=== PATIENT | female | born 1965 | race African-American/Black ===

== ENCOUNTER 2020-09-23 18:42 | Inpatient (IN) ==
[2020-09-23] MEDS ORDERED: AZITHROMYCIN INJ 500 MG in SODIUM CHLORIDE 0.9% 250 ML IV STA (20:46)
[2020-09-23] MEDS ORDERED: DEXAMETHASONE 4 MG/1 ML VIAL IV STA (20:46)
[2020-09-23 20:51] LABS: Hemoglobin 12.2 GM/DL (12.0-16.0); Immature Granulocytes % 0.2 %; Immature Granulocytes Absolute 0.01 #; Lymphocytes # 0.9 10*3/uL (1.4-4.0); Lymphocytes % 18.3 % (21.3-54.2); Mean Corpuscular Volume 82.8 FL (87-102); Mean Platelet Volume 10.5 FL (9.6-12.0); Monocytes % 6.9 % (1.7-12.7); Neutrophils % 74.6 % (38.7-73.9); Platelet Count 175 T/CUMM (130-400); Red Blood Count 4.47 MC/CUMM (3.8-5.5); Red Cell Distribution Width 15.9 % (9.3-17.3); White Blood Count 4.8 T/CUMM (4-12)
[2020-09-23 21:15] LABS: Bilirubin,Total 1.1 MG/DL (0.20-1.00); Calcium 7.9 MG/DL (8.5-10.1); Osmolality,Calculated 277.7 MOS/KG (273-304); Potassium 3.1 MMOL/L (3.5-5.1); Total Protein 7.3 G/DL (6.4-8.2)
[2020-09-23] MEDS ORDERED: POTASSIUM CHLORIDE 20 MEQ TABLET PO STA (21:42)
[2020-09-23] MEDS ORDERED: MELATONIN 3 MG TABLET PO PRN (22:02)
[2020-09-23] MEDS ORDERED: GLUCAGON 1 MG VIAL IM PRN ×2 (22:02)
[2020-09-23] MEDS ORDERED: ONDANSETRON 4 MG/2 ML VIAL IV PRN (22:02)
[2020-09-23] MEDS ORDERED: DEXTROSE 50% 25 GM/50 ML VIAL IV PRN ×2 (22:02)
[2020-09-23 22:15] LABS: Bacteria,Urine Occasional /HPF (Few); Bilirubin,Urine Negative (Negative); Blood, Urine Negative (Negative); Glucose,Urine (UA) Negative (Negative); Hyaline Casts,Urine 26 /LPF (0-3); Ketones,Urine Negative (Negative); Mucus,Urine Occasional /LPF (Occasional); Nitrite,Urine Negative (Negative); Protein,Urine 100 MG/DL; RBC,Urine 6 /HPF (0-4); Squamous Epithelial Cell,Urine Occasional /HPF (0-10); Transitional Epi Cells,Urine Occasional /HPF (<1); Urine Appearance Slightly Hazy (Clear); Urine Color Amber (Yellow); Urine Specific Gravity 1.027 (1.001-1.035); Urine Urobilinogen < 2.0 EU/DL (0.2-1.0)
[2020-09-24 07:10] LABS: Hematocrit 37.1 VOL% (35.7-47.0); Hemoglobin 12.1 GM/DL (12.0-16.0); Immature Granulocytes % 0.3 %; Immature Granulocytes Absolute 0.01 #; Lymphocytes # 0.9 10*3/uL (1.4-4.0); Lymphocytes % 23.3 % (21.3-54.2); Mean Corpuscular HGB Conc 32.6 GM/DL (32-36); Mean Corpuscular Volume 83.6 FL (87-102); Mean Platelet Volume 11.6 FL (9.6-12.0); Monocytes % 5.8 % (1.7-12.7); Neutrophils % 70.6 % (38.7-73.9); Platelet Count 190 T/CUMM (130-400); Red Blood Count 4.44 MC/CUMM (3.8-5.5); Red Cell Distribution Width 15.9 % (9.3-17.3)
[2020-09-24 07:17] LABS: Alanine Aminotransferase 22 U/L (13-56); Albumin 2.9 G/DL (3.4-5.0); Alkaline Phosphatase 71 U/L (45-117); Aspartate Amino Transferase 33 U/L (0-37); Bilirubin,Total < 0.39 MG/DL (0.20-1.00); Blood Urea Nitrogen 18 MG/DL (7-18); Calcium 8.3 MG/DL (8.5-10.1); Carbon Dioxide 26 MMOL/L (21-32); Estimated Glom Filtration Rate 95 ML/MIN; Ferritin 357.3 ng/ml (8-252); Glucose 128 MG/DL (74-106); Osmolality,Calculated 278.7 MOS/KG (273-304); Sodium 138 MMOL/L (136-145); Total Protein 7.6 G/DL (6.4-8.2)
[2020-09-24] MEDS: INSULIN REGULAR 100 UNIT/ML SUBCUT SCH ×4 (07:43→20:58)
[2020-09-24 08:18] LABS: Band Neutrophils 2 % (0-10); Hypochromasia 1+; Lymphocytes 17 % (20-55); Platelet Estimate Adequate; Polychromasia Slight; Segmented Neutrophils 74 % (50-85); Total Cells Counted 100
[2020-09-24] MEDS: ASCORBIC ACID 500 MG TABLET PO SCH ×2 (09:15→20:59)
[2020-09-24] MEDS: CHOLECALCIFEROL 1,000 UNIT TABLET PO SCH (09:15)
[2020-09-24] MEDS: ZINC GLUCONATE 50 MG TABLET PO SCH (09:15)
[2020-09-24] MEDS: CETIRIZINE 10 MG TABLET PO SCH (09:15)
[2020-09-24] MEDS: FAMOTIDINE 20 MG TABLET PO SCH ×2 (09:16→20:59)
[2020-09-24] MEDS: DEXAMETHASONE 4 MG/1 ML VIAL IV SCH (09:20)
[2020-09-24] MEDS: PANTOPRAZOLE 40 MG TABLET PO SCH (09:20)
[2020-09-24] MEDS: ENOXAPARIN 40 MG/0.4 ML SYRINGE SUBCUT SCH ×2 (09:23→20:59)
[2020-09-24] MEDS ORDERED: REMDESIVIR 200 MG in SODIUM CHLORIDE 0.9% 210 ML IV ONE (14:00)
[2020-09-24] MEDS: guaiFENesin/CODEINE 5 ML LIQUID PO PRN (19:51)
[2020-09-24] MEDS ORDERED: AZITHROMYCIN INJ 500 MG in SODIUM CHLORIDE 0.9% 250 ML IV SCH (21:00)
[2020-09-24] MEDS ORDERED: diphenhydrAMINE CAP 25 MG CAPSULE ONE (21:25)
[2020-09-25] MEDS: guaiFENesin/CODEINE 5 ML LIQUID PO PRN ×4 (03:22→18:20)
[2020-09-25] MEDS: INSULIN REGULAR 100 UNIT/ML SUBCUT SCH ×4 (08:45→21:15)
[2020-09-25] MEDS: ZINC GLUCONATE 50 MG TABLET PO SCH (10:41)
[2020-09-25] MEDS: CETIRIZINE 10 MG TABLET PO SCH (10:41)
[2020-09-25] MEDS: FAMOTIDINE 20 MG TABLET PO SCH ×2 (10:41→21:15)
[2020-09-25] MEDS: REMDESIVIR 100 MG in SODIUM CHLORIDE 0.9% 100 ML IV SCH (10:41)
[2020-09-25] MEDS: PANTOPRAZOLE 40 MG TABLET PO SCH (10:42)
[2020-09-25] MEDS: ENOXAPARIN 40 MG/0.4 ML SYRINGE SUBCUT SCH ×2 (10:42→21:15)
[2020-09-25] MEDS: ASCORBIC ACID 500 MG TABLET PO SCH ×2 (10:42→21:15)
[2020-09-25] MEDS: CHOLECALCIFEROL 1,000 UNIT TABLET PO SCH (10:42)
[2020-09-25] MEDS: DEXAMETHASONE 4 MG/1 ML VIAL IV SCH (10:43)
[2020-09-25] MEDS ORDERED: AZITHROMYCIN 250 MG TABLET PO SCH (21:00)
[2020-09-26] MEDS: guaiFENesin/CODEINE 5 ML LIQUID PO PRN ×3 (00:30→21:10)
[2020-09-26 05:17] LABS: Hematocrit 38.8 VOL% (35.7-47.0); Hemoglobin 12.7 GM/DL (12.0-16.0); Immature Granulocytes % 0.4 %; Immature Granulocytes Absolute 0.02 #; Lymphocytes # 1.8 10*3/uL (1.4-4.0); Lymphocytes % 37.1 % (21.3-54.2); Mean Corpuscular HGB Conc 32.7 GM/DL (32-36); Mean Corpuscular Volume 83.4 FL (87-102); Mean Platelet Volume 10.3 FL (9.6-12.0); Monocytes % 13.3 % (1.7-12.7); Neutrophils % 49.2 % (38.7-73.9); Platelet Count 275 T/CUMM (130-400); Red Blood Count 4.65 MC/CUMM (3.8-5.5); White Blood Count 4.7 T/CUMM (4-12)
[2020-09-26 05:33] LABS: Calcium 8.5 MG/DL (8.5-10.1); Osmolality,Calculated 277.5 MOS/KG (273-304)
[2020-09-26 05:45] LABS: Hypochromasia 1+; Microcytosis 1+
[2020-09-26 05:46] LABS: Platelet Estimate Normal
[2020-09-26] MEDS: INSULIN REGULAR 100 UNIT/ML SUBCUT SCH ×4 (07:19→21:50)
[2020-09-26] MEDS: ENOXAPARIN 40 MG/0.4 ML SYRINGE SUBCUT SCH ×2 (09:25→21:10)
[2020-09-26] MEDS: DEXAMETHASONE 4 MG/1 ML VIAL IV SCH (09:25)
[2020-09-26] MEDS: CETIRIZINE 10 MG TABLET PO SCH (09:33)
[2020-09-26] MEDS: REMDESIVIR 100 MG in SODIUM CHLORIDE 0.9% 100 ML IV SCH (09:33)
[2020-09-26] MEDS: FAMOTIDINE 20 MG TABLET PO SCH ×2 (09:33→21:10)
[2020-09-26] MEDS: CHOLECALCIFEROL 1,000 UNIT TABLET PO SCH (09:33)
[2020-09-26] MEDS: ASCORBIC ACID 500 MG TABLET PO SCH ×2 (09:34→21:10)
[2020-09-26] MEDS: PANTOPRAZOLE 40 MG TABLET PO SCH (09:34)
[2020-09-26] MEDS: ZINC GLUCONATE 50 MG TABLET PO SCH (09:37)
[2020-09-27] MEDS: guaiFENesin/CODEINE 5 ML LIQUID PO PRN ×4 (02:54→23:07)
[2020-09-27 06:11] LABS: Hemoglobin 12.9 GM/DL (12.0-16.0); Immature Granulocytes % 1.1 %; Immature Granulocytes Absolute 0.06 #; Lymphocytes % 37.2 % (21.3-54.2); Mean Corpuscular HGB Conc 33.1 GM/DL (32-36); Mean Corpuscular Volume 82.8 FL (87-102); Mean Platelet Volume 10.4 FL (9.6-12.0); Monocytes % 12.1 % (1.7-12.7); Neutrophils % 49.6 % (38.7-73.9); Platelet Count 304 T/CUMM (130-400); Red Blood Count 4.71 MC/CUMM (3.8-5.5); Red Cell Distribution Width 15.9 % (9.3-17.3); White Blood Count 5.4 T/CUMM (4-12)
[2020-09-27 06:37] LABS: Calcium 8.3 MG/DL (8.5-10.1); Osmolality,Calculated 278.4 MOS/KG (273-304); Potassium 3.8 MMOL/L (3.5-5.1)
[2020-09-27] MEDS: INSULIN REGULAR 100 UNIT/ML SUBCUT SCH ×4 (07:12→21:40)
[2020-09-27 07:54] LABS: Hypochromasia 1+; Microcytosis 1+
[2020-09-27 07:55] LABS: Platelet Estimate Normal
[2020-09-27] MEDS: ASCORBIC ACID 500 MG TABLET PO SCH ×2 (08:15→21:40)
[2020-09-27] MEDS: PANTOPRAZOLE 40 MG TABLET PO SCH (08:15)
[2020-09-27] MEDS: CETIRIZINE 10 MG TABLET PO SCH (08:16)
[2020-09-27] MEDS: FAMOTIDINE 20 MG TABLET PO SCH ×2 (08:16→21:40)
[2020-09-27] MEDS: CHOLECALCIFEROL 1,000 UNIT TABLET PO SCH (08:16)
[2020-09-27] MEDS: ZINC GLUCONATE 50 MG TABLET PO SCH (08:16)
[2020-09-27] MEDS: DEXAMETHASONE 4 MG/1 ML VIAL IV SCH (08:16)
[2020-09-27] MEDS: ENOXAPARIN 40 MG/0.4 ML SYRINGE SUBCUT SCH ×2 (08:17→21:40)
[2020-09-27] MEDS: REMDESIVIR 100 MG in SODIUM CHLORIDE 0.9% 100 ML IV SCH (09:52)
[2020-09-28] MEDS: guaiFENesin/CODEINE 5 ML LIQUID PO PRN ×3 (04:48→21:25)
[2020-09-28 07:03] LABS: Basophils % 0.1 % (0.0-0.8); Hematocrit 37.8 VOL% (35.7-47.0); Hemoglobin 12.5 GM/DL (12.0-16.0); Immature Granulocytes Absolute 0.08 #; Lymphocytes # 2.5 10*3/uL (1.4-4.0); Lymphocytes % 31.2 % (21.3-54.2); Mean Corpuscular HGB Conc 33.1 GM/DL (32-36); Mean Corpuscular Volume 82.2 FL (87-102); Mean Platelet Volume 10.3 FL (9.6-12.0); Monocytes % 8.8 % (1.7-12.7); NRBC # 0.02 10*3/uL; Neutrophils % 58.9 % (38.7-73.9); Platelet Count 366 T/CUMM (130-400)
[2020-09-28 07:21] LABS: Calcium 8.4 MG/DL (8.5-10.1); Osmolality,Calculated 272.8 MOS/KG (273-304); Potassium 3.5 MMOL/L (3.5-5.1)
[2020-09-28 07:38] LABS: Band Neutrophils 2 % (0-10); Lymphocytes 35 % (20-55); Platelet Estimate Normal; Segmented Neutrophils 53 % (50-85); Total Cells Counted 100
[2020-09-28 07:39] LABS: Anisocytosis 1+; Atypical Lymphocytes Few
[2020-09-28] MEDS: INSULIN REGULAR 100 UNIT/ML SUBCUT SCH ×4 (08:37→20:14)
[2020-09-28] MEDS: PANTOPRAZOLE 40 MG TABLET PO SCH (09:43)
[2020-09-28] MEDS: ZINC GLUCONATE 50 MG TABLET PO SCH (09:43)
[2020-09-28] MEDS: CHOLECALCIFEROL 1,000 UNIT TABLET PO SCH (09:43)
[2020-09-28] MEDS: CETIRIZINE 10 MG TABLET PO SCH (09:43)
[2020-09-28] MEDS: ASCORBIC ACID 500 MG TABLET PO SCH ×2 (09:43→21:22)
[2020-09-28] MEDS: FAMOTIDINE 20 MG TABLET PO SCH ×2 (09:43→21:22)
[2020-09-28] MEDS: DEXAMETHASONE 4 MG/1 ML VIAL IV SCH (09:44)
[2020-09-28] MEDS: ENOXAPARIN 40 MG/0.4 ML SYRINGE SUBCUT SCH ×2 (09:44→21:22)
[2020-09-28] MEDS: REMDESIVIR 100 MG in SODIUM CHLORIDE 0.9% 100 ML IV SCH (09:44)
[2020-09-28] MEDS ORDERED: tiZANidine 4 MG TABLET PO PRN (15:20)
[2020-09-28] MEDS: FUROSEMIDE 40 MG TABLET PO SCH (16:28)
[2020-09-28] MEDS: ASPIRIN EC 81 MG TABLET PO SCH (16:28)
[2020-09-28] MEDS: ATORVASTATIN 20 MG TABLET PO SCH (16:28)
[2020-09-28] MEDS: busPIRone 5 MG TABLET PO SCH (21:22)
[2020-09-28] MEDS: allopurinoL 100 MG TABLET PO SCH (21:22)
[2020-09-28] MEDS: POTASSIUM CHLORIDE 20 MEQ TABLET PO SCH (21:22)
[2020-09-28] MEDS: DOXAZOSIN 1 MG TABLET PO SCH (21:22)
[2020-09-29] MEDS: guaiFENesin/CODEINE 5 ML LIQUID PO PRN ×3 (05:09→16:18)
[2020-09-29] MEDS: INSULIN REGULAR 100 UNIT/ML SUBCUT SCH ×4 (08:34→21:01)
[2020-09-29] MEDS: ASPIRIN EC 81 MG TABLET PO SCH (09:35)
[2020-09-29] MEDS: ENOXAPARIN 40 MG/0.4 ML SYRINGE SUBCUT SCH ×2 (09:35→20:44)
[2020-09-29] MEDS: ZINC GLUCONATE 50 MG TABLET PO SCH (09:35)
[2020-09-29] MEDS: CHOLECALCIFEROL 1,000 UNIT TABLET PO SCH (09:35)
[2020-09-29] MEDS: CETIRIZINE 10 MG TABLET PO SCH (09:36)
[2020-09-29] MEDS: POTASSIUM CHLORIDE 20 MEQ TABLET PO SCH ×2 (09:36→20:44)
[2020-09-29] MEDS: FAMOTIDINE 20 MG TABLET PO SCH ×2 (09:36→20:44)
[2020-09-29] MEDS: ASCORBIC ACID 500 MG TABLET PO SCH ×2 (09:36→20:44)
[2020-09-29] MEDS: ATORVASTATIN 20 MG TABLET PO SCH (09:36)
[2020-09-29] MEDS: allopurinoL 100 MG TABLET PO SCH ×2 (09:37→20:44)
[2020-09-29] MEDS: FUROSEMIDE 40 MG TABLET PO SCH (09:37)
[2020-09-29] MEDS: busPIRone 5 MG TABLET PO SCH ×2 (09:37→20:44)
[2020-09-29] MEDS: PANTOPRAZOLE 40 MG TABLET PO SCH (09:37)
[2020-09-29] MEDS: DEXAMETHASONE 4 MG/1 ML VIAL IV SCH (09:38)
[2020-09-29] MEDS: DOXAZOSIN 1 MG TABLET PO SCH ×2 (09:48→20:44)
[2020-09-29 16:33] LABS: Calcium 8.4 MG/DL (8.5-10.1); Osmolality,Calculated 274.8 MOS/KG (273-304); Potassium 4.4 MMOL/L (3.5-5.1)
[2020-09-30] MEDS: guaiFENesin/CODEINE 5 ML LIQUID PO PRN ×4 (01:30→21:35)
[2020-09-30 03:16] LABS: Eosinophils # 0.1 10*3/uL (0.0-0.87); Eosinophils % 1.2 % (0.00-10.9); Hemoglobin 12.5 GM/DL (12.0-16.0); Immature Granulocytes % 0.9 %; Immature Granulocytes Absolute 0.05 #; Lymphocytes # 1.1 10*3/uL (1.4-4.0); Lymphocytes % 18.5 % (21.3-54.2); Mean Corpuscular HGB Conc 33.8 GM/DL (32-36); Mean Corpuscular Volume 83.1 FL (87-102); Mean Platelet Volume 9.9 FL (9.6-12.0); Monocytes % 9.6 % (1.7-12.7); Neutrophils % 69.8 % (38.7-73.9); Platelet Count 407 T/CUMM (130-400); Red Blood Count 4.45 MC/CUMM (3.8-5.5); Red Cell Distribution Width 16.3 % (9.3-17.3); White Blood Count 5.8 T/CUMM (4-12)
[2020-09-30] MEDS: INSULIN REGULAR 100 UNIT/ML SUBCUT SCH ×4 (08:12→21:01)
[2020-09-30] MEDS: DOXAZOSIN 1 MG TABLET PO SCH ×2 (08:34→21:01)
[2020-09-30] MEDS: CHOLECALCIFEROL 1,000 UNIT TABLET PO SCH (08:34)
[2020-09-30] MEDS: PANTOPRAZOLE 40 MG TABLET PO SCH (08:35)
[2020-09-30] MEDS: ZINC GLUCONATE 50 MG TABLET PO SCH (08:35)
[2020-09-30] MEDS: ASCORBIC ACID 500 MG TABLET PO SCH ×2 (08:35→21:00)
[2020-09-30] MEDS: ASPIRIN EC 81 MG TABLET PO SCH (08:35)
[2020-09-30] MEDS: CETIRIZINE 10 MG TABLET PO SCH (08:35)
[2020-09-30] MEDS: POTASSIUM CHLORIDE 20 MEQ TABLET PO SCH ×2 (08:35→21:00)
[2020-09-30] MEDS: ATORVASTATIN 20 MG TABLET PO SCH (08:35)
[2020-09-30] MEDS: allopurinoL 100 MG TABLET PO SCH ×2 (08:35→21:00)
[2020-09-30] MEDS: FAMOTIDINE 20 MG TABLET PO SCH ×2 (08:35→21:01)
[2020-09-30] MEDS: busPIRone 5 MG TABLET PO SCH ×2 (08:35→21:00)
[2020-09-30] MEDS: FUROSEMIDE 40 MG TABLET PO SCH (08:36)
[2020-09-30] MEDS: ENOXAPARIN 40 MG/0.4 ML SYRINGE SUBCUT SCH ×2 (08:36→21:00)
[2020-09-30] MEDS: DEXAMETHASONE 4 MG/1 ML VIAL IV SCH (09:07)
[2020-09-30] MEDS: ACETAMINOPHEN 325 MG TABLET PO PRN (16:10)
[2020-09-30] MEDS: REMDESIVIR 100 MG in SODIUM CHLORIDE 0.9% 100 ML IV SCH (17:17)
[2020-09-30] MEDS: MEROPENEM 500 MG in SODIUM CHLORIDE 0.9% 100 ML IV SCH (18:36)
[2020-10-01] MEDS: MEROPENEM 500 MG in SODIUM CHLORIDE 0.9% 100 ML IV SCH ×4 (00:18→18:04)
[2020-10-01] MEDS: ACETAMINOPHEN 325 MG TABLET PO PRN (00:25)
[2020-10-01 06:57] LABS: Basophils % 0.1 % (0.0-0.8); Eosinophils # 0.2 10*3/uL (0.0-0.87); Eosinophils % 2.6 % (0.00-10.9); Hematocrit 38.5 VOL% (35.7-47.0); Immature Granulocytes % 0.9 %; Immature Granulocytes Absolute 0.07 #; Lymphocytes # 1.3 10*3/uL (1.4-4.0); Lymphocytes % 17.5 % (21.3-54.2); Mean Corpuscular HGB Conc 33.8 GM/DL (32-36); Mean Platelet Volume 9.1 FL (9.6-12.0); Monocytes % 5.8 % (1.7-12.7); Neutrophils % 73.1 % (38.7-73.9); Platelet Count 385 T/CUMM (130-400); Red Blood Count 4.64 MC/CUMM (3.8-5.5); Red Cell Distribution Width 16.4 % (9.3-17.3); White Blood Count 7.6 T/CUMM (4-12)
[2020-10-01 07:16] LABS: Albumin 2.4 G/DL (3.4-5.0); Bilirubin,Direct 0.19 MG/DL (0.0-0.20); Bilirubin,Indirect 0.5 MG/DL (0.0-1.0); Bilirubin,Total 0.7 MG/DL (0.20-1.00); Total Protein 6.8 G/DL (6.4-8.2)
[2020-10-01 07:20] LABS: Calcium 8.2 MG/DL (8.5-10.1); Osmolality,Calculated 268.1 MOS/KG (273-304); Potassium 4.4 MMOL/L (3.5-5.1)
[2020-10-01] MEDS: INSULIN REGULAR 100 UNIT/ML SUBCUT SCH ×4 (07:32→21:06)
[2020-10-01] MEDS: DEXAMETHASONE 4 MG/1 ML VIAL IV SCH (08:41)
[2020-10-01] MEDS: FUROSEMIDE 40 MG TABLET PO SCH (08:41)
[2020-10-01] MEDS: allopurinoL 100 MG TABLET PO SCH ×2 (08:41→21:07)
[2020-10-01] MEDS: DOXAZOSIN 1 MG TABLET PO SCH ×2 (08:41→21:05)
[2020-10-01] MEDS: busPIRone 5 MG TABLET PO SCH ×2 (08:42→21:05)
[2020-10-01] MEDS: PANTOPRAZOLE 40 MG TABLET PO SCH (08:42)
[2020-10-01] MEDS: ASCORBIC ACID 500 MG TABLET PO SCH ×2 (08:42→21:07)
[2020-10-01] MEDS: POTASSIUM CHLORIDE 20 MEQ TABLET PO SCH ×2 (08:42→21:06)
[2020-10-01] MEDS: CHOLECALCIFEROL 1,000 UNIT TABLET PO SCH (08:42)
[2020-10-01] MEDS: ASPIRIN EC 81 MG TABLET PO SCH (08:42)
[2020-10-01] MEDS: FAMOTIDINE 20 MG TABLET PO SCH ×2 (08:42→21:07)
[2020-10-01] MEDS: ZINC GLUCONATE 50 MG TABLET PO SCH (08:42)
[2020-10-01] MEDS: ATORVASTATIN 20 MG TABLET PO SCH (08:42)
[2020-10-01] MEDS: CETIRIZINE 10 MG TABLET PO SCH (08:45)
[2020-10-01] MEDS: ENOXAPARIN 40 MG/0.4 ML SYRINGE SUBCUT SCH ×2 (08:45→21:06)
[2020-10-01] MEDS: guaiFENesin/CODEINE 5 ML LIQUID PO PRN ×3 (09:14→21:08)
[2020-10-01] MEDS ORDERED: FUROSEMIDE 40 MG/4 ML VIAL IV ONE (10:28)
[2020-10-01] MEDS: REMDESIVIR 100 MG in SODIUM CHLORIDE 0.9% 100 ML IV SCH (13:32)
[2020-10-01] MEDS: FUROSEMIDE 40 MG/4 ML VIAL IV SCH (21:06)
[2020-10-02] MEDS: MEROPENEM 500 MG in SODIUM CHLORIDE 0.9% 100 ML IV SCH ×4 (01:44→17:33)
[2020-10-02] MEDS: guaiFENesin/CODEINE 5 ML LIQUID PO PRN ×4 (03:00→23:06)
[2020-10-02 06:32] LABS: Basophils % 0.2 % (0.0-0.8); Eosinophils # 0.1 10*3/uL (0.0-0.87); Eosinophils % 0.9 % (0.00-10.9); Hematocrit 36.7 VOL% (35.7-47.0); Hemoglobin 12.5 GM/DL (12.0-16.0); Immature Granulocytes % 0.8 %; Immature Granulocytes Absolute 0.05 #; Lymphocytes # 1.1 10*3/uL (1.4-4.0); Lymphocytes % 17.6 % (21.3-54.2); Mean Corpuscular HGB Conc 34.1 GM/DL (32-36); Mean Corpuscular Volume 81.7 FL (87-102); Mean Platelet Volume 9.2 FL (9.6-12.0); Monocytes % 7.2 % (1.7-12.7); Neutrophils % 73.3 % (38.7-73.9); Platelet Count 428 T/CUMM (130-400); Red Blood Count 4.49 MC/CUMM (3.8-5.5); Red Cell Distribution Width 16.2 % (9.3-17.3); White Blood Count 6.4 T/CUMM (4-12)
[2020-10-02 07:01] LABS: Band Neutrophils 1 % (0-10); Eosinophils 1 % (0-10); Hypochromasia 1+; Lymphocytes 22 % (20-55); Microcytosis 1+; Platelet Estimate Adequate; Segmented Neutrophils 70 % (50-85); Total Cells Counted 100
[2020-10-02 07:06] LABS: Calcium 8.8 MG/DL (8.5-10.1); Ferritin 308.5 ng/ml (8-252); Osmolality,Calculated 276.8 MOS/KG (273-304); Potassium 4.1 MMOL/L (3.5-5.1)
[2020-10-02] MEDS: INSULIN REGULAR 100 UNIT/ML SUBCUT SCH ×4 (07:50→21:07)
[2020-10-02] MEDS: ASCORBIC ACID 500 MG TABLET PO SCH ×2 (08:52→21:06)
[2020-10-02] MEDS: ENOXAPARIN 40 MG/0.4 ML SYRINGE SUBCUT SCH ×2 (08:52→21:05)
[2020-10-02] MEDS: POTASSIUM CHLORIDE 20 MEQ TABLET PO SCH ×2 (08:52→21:06)
[2020-10-02] MEDS: ATORVASTATIN 20 MG TABLET PO SCH (08:53)
[2020-10-02] MEDS: DOXAZOSIN 1 MG TABLET PO SCH ×2 (08:53→21:06)
[2020-10-02] MEDS: FAMOTIDINE 20 MG TABLET PO SCH ×2 (08:53→21:06)
[2020-10-02] MEDS: ASPIRIN EC 81 MG TABLET PO SCH (08:53)
[2020-10-02] MEDS: busPIRone 5 MG TABLET PO SCH ×2 (08:53→21:06)
[2020-10-02] MEDS: CETIRIZINE 10 MG TABLET PO SCH (08:53)
[2020-10-02] MEDS: allopurinoL 100 MG TABLET PO SCH ×2 (08:53→21:06)
[2020-10-02] MEDS: CHOLECALCIFEROL 1,000 UNIT TABLET PO SCH (08:53)
[2020-10-02] MEDS: FUROSEMIDE 40 MG/4 ML VIAL IV SCH ×2 (08:53→21:05)
[2020-10-02] MEDS: ZINC GLUCONATE 50 MG TABLET PO SCH (08:53)
[2020-10-02] MEDS: DEXAMETHASONE 4 MG/1 ML VIAL IV SCH (08:54)
[2020-10-02] MEDS: PANTOPRAZOLE 40 MG TABLET PO SCH (08:58)
[2020-10-02] MEDS: REMDESIVIR 100 MG in SODIUM CHLORIDE 0.9% 100 ML IV SCH (10:05)
[2020-10-03] MEDS: MEROPENEM 500 MG in SODIUM CHLORIDE 0.9% 100 ML IV SCH ×4 (05:30→19:44)
[2020-10-03] MEDS: guaiFENesin/CODEINE 5 ML LIQUID PO PRN ×3 (05:30→21:53)
[2020-10-03 06:26] LABS: Basophils % 0.2 % (0.0-0.8); Eosinophils # 0.1 10*3/uL (0.0-0.87); Hematocrit 37.3 VOL% (35.7-47.0); Hemoglobin 12.2 GM/DL (12.0-16.0); Immature Granulocytes % 0.7 %; Immature Granulocytes Absolute 0.06 #; Lymphocytes # 2.1 10*3/uL (1.4-4.0); Lymphocytes % 23.2 % (21.3-54.2); Mean Corpuscular HGB Conc 32.7 GM/DL (32-36); Mean Platelet Volume 9.7 FL (9.6-12.0); Monocytes % 6.8 % (1.7-12.7); Neutrophils % 68.1 % (38.7-73.9); Platelet Count 473 T/CUMM (130-400); Red Blood Count 4.55 MC/CUMM (3.8-5.5); Red Cell Distribution Width 15.9 % (9.3-17.3); White Blood Count 8.9 T/CUMM (4-12)
[2020-10-03 06:57] LABS: Calcium 8.8 MG/DL (8.5-10.1); Ferritin 288.7 ng/ml (8-252); Osmolality,Calculated 265.5 MOS/KG (273-304); Potassium 3.8 MMOL/L (3.5-5.1)
[2020-10-03] MEDS: INSULIN REGULAR 100 UNIT/ML SUBCUT SCH ×4 (08:01→23:33)
[2020-10-03] MEDS: FUROSEMIDE 40 MG/4 ML VIAL IV SCH ×2 (08:13→21:53)
[2020-10-03] MEDS: DEXAMETHASONE 4 MG/1 ML VIAL IV SCH (08:14)
[2020-10-03] MEDS: CHOLECALCIFEROL 1,000 UNIT TABLET PO SCH (09:42)
[2020-10-03] MEDS: CETIRIZINE 10 MG TABLET PO SCH (09:42)
[2020-10-03] MEDS: FAMOTIDINE 20 MG TABLET PO SCH ×2 (09:42→21:54)
[2020-10-03] MEDS: DOXAZOSIN 1 MG TABLET PO SCH ×2 (09:42→21:53)
[2020-10-03] MEDS: ZINC GLUCONATE 50 MG TABLET PO SCH (09:42)
[2020-10-03] MEDS: ATORVASTATIN 20 MG TABLET PO SCH (09:42)
[2020-10-03] MEDS: ASCORBIC ACID 500 MG TABLET PO SCH ×2 (09:42→21:54)
[2020-10-03] MEDS: ASPIRIN EC 81 MG TABLET PO SCH (09:42)
[2020-10-03] MEDS: POTASSIUM CHLORIDE 20 MEQ TABLET PO SCH ×2 (09:43→21:54)
[2020-10-03] MEDS: ENOXAPARIN 40 MG/0.4 ML SYRINGE SUBCUT SCH ×2 (09:43→21:53)
[2020-10-03] MEDS: busPIRone 5 MG TABLET PO SCH ×2 (09:43→21:53)
[2020-10-03] MEDS: allopurinoL 100 MG TABLET PO SCH ×2 (09:43→21:54)
[2020-10-03] MEDS: PANTOPRAZOLE 40 MG TABLET PO SCH ×2 (09:43→15:06)
[2020-10-03] MEDS: REMDESIVIR 100 MG in SODIUM CHLORIDE 0.9% 100 ML IV SCH (10:02)
[2020-10-04] MEDS: MEROPENEM 500 MG in SODIUM CHLORIDE 0.9% 100 ML IV SCH ×4 (00:50→18:39)
[2020-10-04] MEDS: guaiFENesin/CODEINE 5 ML LIQUID PO PRN ×3 (03:48→14:40)
[2020-10-04 05:12] LABS: Basophils % 0.2 % (0.0-0.8); Eosinophils # 0.1 10*3/uL (0.0-0.87); Eosinophils % 0.5 % (0.00-10.9); Hematocrit 36.7 VOL% (35.7-47.0); Hemoglobin 12.3 GM/DL (12.0-16.0); Immature Granulocytes % 0.7 %; Immature Granulocytes Absolute 0.07 #; Lymphocytes # 2.6 10*3/uL (1.4-4.0); Lymphocytes % 24.9 % (21.3-54.2); Mean Corpuscular HGB Conc 33.5 GM/DL (32-36); Mean Corpuscular Volume 82.5 FL (87-102); Mean Platelet Volume 9.8 FL (9.6-12.0); Monocytes % 9.1 % (1.7-12.7); Neutrophils % 64.6 % (38.7-73.9); Platelet Count 475 T/CUMM (130-400); Red Blood Count 4.45 MC/CUMM (3.8-5.5); Red Cell Distribution Width 16.1 % (9.3-17.3); White Blood Count 10.3 T/CUMM (4-12)
[2020-10-04 05:40] LABS: Calcium 8.5 MG/DL (8.5-10.1); Ferritin 241.3 ng/ml (8-252); Osmolality,Calculated 276.7 MOS/KG (273-304)
[2020-10-04] MEDS: ENOXAPARIN 40 MG/0.4 ML SYRINGE SUBCUT SCH ×2 (08:52→20:58)
[2020-10-04] MEDS: FUROSEMIDE 40 MG/4 ML VIAL IV SCH ×2 (08:53→20:58)
[2020-10-04] MEDS: CETIRIZINE 10 MG TABLET PO SCH (08:54)
[2020-10-04] MEDS: allopurinoL 100 MG TABLET PO SCH ×2 (08:54→20:57)
[2020-10-04] MEDS: FAMOTIDINE 20 MG TABLET PO SCH ×2 (08:54→20:58)
[2020-10-04] MEDS: ASPIRIN EC 81 MG TABLET PO SCH (08:54)
[2020-10-04] MEDS: POTASSIUM CHLORIDE 20 MEQ TABLET PO SCH ×2 (08:54→20:58)
[2020-10-04] MEDS: ATORVASTATIN 20 MG TABLET PO SCH (08:54)
[2020-10-04] MEDS: ZINC GLUCONATE 50 MG TABLET PO SCH (08:54)
[2020-10-04] MEDS: busPIRone 5 MG TABLET PO SCH ×2 (08:54→20:58)
[2020-10-04] MEDS: CHOLECALCIFEROL 1,000 UNIT TABLET PO SCH (08:54)
[2020-10-04] MEDS: DOXAZOSIN 1 MG TABLET PO SCH ×2 (08:54→20:57)
[2020-10-04] MEDS: PANTOPRAZOLE 40 MG TABLET PO SCH (08:54)
[2020-10-04] MEDS: ASCORBIC ACID 500 MG TABLET PO SCH ×2 (08:55→20:58)
[2020-10-04] MEDS: INSULIN REGULAR 100 UNIT/ML SUBCUT SCH ×4 (09:43→21:19)
[2020-10-04] MEDS: REMDESIVIR 100 MG in SODIUM CHLORIDE 0.9% 100 ML IV SCH (10:58)
[2020-10-05] MEDS: guaiFENesin/CODEINE 5 ML LIQUID PO PRN ×4 (00:03→22:45)
[2020-10-05] MEDS: MEROPENEM 500 MG in SODIUM CHLORIDE 0.9% 100 ML IV SCH ×4 (02:18→21:17)
[2020-10-05 05:37] LABS: Basophils % 0.2 % (0.0-0.8); Eosinophils # 0.1 10*3/uL (0.0-0.87); Hematocrit 36.3 VOL% (35.7-47.0); Hemoglobin 11.9 GM/DL (12.0-16.0); Immature Granulocytes % 0.7 %; Immature Granulocytes Absolute 0.09 #; Lymphocytes # 2.9 10*3/uL (1.4-4.0); Lymphocytes % 21.9 % (21.3-54.2); Mean Corpuscular HGB Conc 32.8 GM/DL (32-36); Mean Corpuscular Volume 82.9 FL (87-102); Mean Platelet Volume 9.6 FL (9.6-12.0); Monocytes % 10.2 % (1.7-12.7); Platelet Count 406 T/CUMM (130-400); Red Blood Count 4.38 MC/CUMM (3.8-5.5); Red Cell Distribution Width 16.2 % (9.3-17.3); White Blood Count 13.2 T/CUMM (4-12)
[2020-10-05 05:56] LABS: Calcium 8.4 MG/DL (8.5-10.1); Ferritin 323.2 ng/ml (8-252); Potassium 4.1 MMOL/L (3.5-5.1)
[2020-10-05] MEDS: INSULIN REGULAR 100 UNIT/ML SUBCUT SCH ×4 (09:18→21:53)
[2020-10-05] MEDS: FUROSEMIDE 40 MG/4 ML VIAL IV SCH (09:22)
[2020-10-05] MEDS: POTASSIUM CHLORIDE 20 MEQ TABLET PO SCH ×2 (09:25→20:59)
[2020-10-05] MEDS: allopurinoL 100 MG TABLET PO SCH ×2 (09:25→20:59)
[2020-10-05] MEDS: CHOLECALCIFEROL 1,000 UNIT TABLET PO SCH (09:25)
[2020-10-05] MEDS: ASPIRIN EC 81 MG TABLET PO SCH (09:25)
[2020-10-05] MEDS: ATORVASTATIN 20 MG TABLET PO SCH (09:25)
[2020-10-05] MEDS: ASCORBIC ACID 500 MG TABLET PO SCH ×2 (09:25→21:00)
[2020-10-05] MEDS: PANTOPRAZOLE 40 MG TABLET PO SCH (09:25)
[2020-10-05] MEDS: DOXAZOSIN 1 MG TABLET PO SCH ×2 (09:26→20:59)
[2020-10-05] MEDS: CETIRIZINE 10 MG TABLET PO SCH (09:26)
[2020-10-05] MEDS: ZINC GLUCONATE 50 MG TABLET PO SCH (09:26)
[2020-10-05] MEDS: busPIRone 5 MG TABLET PO SCH ×2 (09:26→20:59)
[2020-10-05] MEDS: FAMOTIDINE 20 MG TABLET PO SCH ×2 (09:26→20:59)
[2020-10-05] MEDS: ENOXAPARIN 40 MG/0.4 ML SYRINGE SUBCUT SCH ×2 (09:48→20:59)
[2020-10-05] MEDS: FUROSEMIDE 40 MG TABLET PO SCH (16:44)
[2020-10-06] MEDS: MEROPENEM 500 MG in SODIUM CHLORIDE 0.9% 100 ML IV SCH ×4 (03:12→20:50)
[2020-10-06] MEDS: guaiFENesin/CODEINE 5 ML LIQUID PO PRN ×2 (06:03→20:49)
[2020-10-06 06:24] LABS: Basophils % 0.2 % (0.0-0.8); Eosinophils # 0.1 10*3/uL (0.0-0.87); Eosinophils % 0.4 % (0.00-10.9); Hematocrit 34.9 VOL% (35.7-47.0); Hemoglobin 11.5 GM/DL (12.0-16.0); Immature Granulocytes % 0.8 %; Immature Granulocytes Absolute 0.15 #; Lymphocytes # 2.1 10*3/uL (1.4-4.0); Lymphocytes % 10.7 % (21.3-54.2); Mean Corpuscular Volume 83.3 FL (87-102); Monocytes % 8.4 % (1.7-12.7); Neutrophils % 79.5 % (38.7-73.9); Platelet Count 354 T/CUMM (130-400); Red Blood Count 4.19 MC/CUMM (3.8-5.5); Red Cell Distribution Width 16.4 % (9.3-17.3); White Blood Count 19.2 T/CUMM (4-12)
[2020-10-06 07:01] LABS: Calcium 8.6 MG/DL (8.5-10.1); Calcium 8.7 MG/DL (8.5-10.1); Ferritin 560.2 ng/ml (8-252); Osmolality,Calculated 270.2 MOS/KG (273-304); Osmolality,Calculated 273.1 MOS/KG (273-304); Potassium 4.4 MMOL/L (3.5-5.1)
[2020-10-06] MEDS: INSULIN REGULAR 100 UNIT/ML SUBCUT SCH ×4 (09:10→21:01)
[2020-10-06] MEDS: allopurinoL 100 MG TABLET PO SCH ×2 (09:11→20:49)
[2020-10-06] MEDS: busPIRone 5 MG TABLET PO SCH ×2 (09:11→20:49)
[2020-10-06] MEDS: ATORVASTATIN 20 MG TABLET PO SCH (09:11)
[2020-10-06] MEDS: DOXAZOSIN 1 MG TABLET PO SCH ×2 (09:11→20:48)
[2020-10-06] MEDS: CETIRIZINE 10 MG TABLET PO SCH (09:12)
[2020-10-06] MEDS: ZINC GLUCONATE 50 MG TABLET PO SCH (09:12)
[2020-10-06] MEDS: CHOLECALCIFEROL 1,000 UNIT TABLET PO SCH (09:12)
[2020-10-06] MEDS: FAMOTIDINE 20 MG TABLET PO SCH ×2 (09:13→20:49)
[2020-10-06] MEDS: FUROSEMIDE 40 MG TABLET PO SCH ×2 (09:14→17:33)
[2020-10-06] MEDS: ASPIRIN EC 81 MG TABLET PO SCH (09:15)
[2020-10-06] MEDS: ASCORBIC ACID 500 MG TABLET PO SCH ×2 (09:16→20:48)
[2020-10-06] MEDS: PANTOPRAZOLE 40 MG TABLET PO SCH (09:16)
[2020-10-06] MEDS: ENOXAPARIN 40 MG/0.4 ML SYRINGE SUBCUT SCH (09:16)
[2020-10-06] MEDS: POTASSIUM CHLORIDE 20 MEQ TABLET PO SCH ×2 (09:16→20:48)
[2020-10-06 14:28] LABS: Bacteria,Urine Many /HPF (Few); Bilirubin,Urine Negative (Negative); Blood, Urine Small mg/dL (Negative); Glucose,Urine (UA) Negative (Negative); Ketones,Urine Negative (Negative); Mucus,Urine Occasional /LPF (Occasional); Nitrite,Urine Negative (Negative); Protein,Urine 30 MG/DL; RBC,Urine 46 /HPF (0-4); Squamous Epithelial Cell,Urine Occasional /HPF (0-10); Urine Appearance CLOUDY (Clear); Urine Color Amber (Yellow); Urine Specific Gravity 1.024 (1.001-1.035)
[2020-10-07] MEDS: MEROPENEM 500 MG in SODIUM CHLORIDE 0.9% 100 ML IV SCH ×4 (02:32→20:15)
[2020-10-07 06:20] LABS: Basophils % 0.2 % (0.0-0.8); Eosinophils # 0.1 10*3/uL (0.0-0.87); Eosinophils % 0.4 % (0.00-10.9); Hematocrit 33.7 VOL% (35.7-47.0); Hemoglobin 11.5 GM/DL (12.0-16.0); Immature Granulocytes % 0.8 %; Immature Granulocytes Absolute 0.16 #; Lymphocytes # 1.9 10*3/uL (1.4-4.0); Lymphocytes % 9.5 % (21.3-54.2); Mean Corpuscular HGB Conc 34.1 GM/DL (32-36); Mean Corpuscular Volume 82.4 FL (87-102); Mean Platelet Volume 9.7 FL (9.6-12.0); Neutrophils % 81.1 % (38.7-73.9); Platelet Count 335 T/CUMM (130-400); Red Blood Count 4.09 MC/CUMM (3.8-5.5); Red Cell Distribution Width 16.3 % (9.3-17.3); White Blood Count 19.5 T/CUMM (4-12)
[2020-10-07 06:51] LABS: Calcium 8.9 MG/DL (8.5-10.1); Ferritin 887.2 ng/ml (8-252); Potassium 4.6 MMOL/L (3.5-5.1)
[2020-10-07] MEDS: INSULIN REGULAR 100 UNIT/ML SUBCUT SCH ×4 (08:09→20:18)
[2020-10-07] MEDS: ATORVASTATIN 20 MG TABLET PO SCH (09:47)
[2020-10-07] MEDS: busPIRone 5 MG TABLET PO SCH ×2 (09:47→20:17)
[2020-10-07] MEDS: DOXAZOSIN 1 MG TABLET PO SCH ×2 (09:47→20:17)
[2020-10-07] MEDS: CHOLECALCIFEROL 1,000 UNIT TABLET PO SCH (09:47)
[2020-10-07] MEDS: ASCORBIC ACID 500 MG TABLET PO SCH ×2 (09:47→20:17)
[2020-10-07] MEDS: CETIRIZINE 10 MG TABLET PO SCH (09:48)
[2020-10-07] MEDS: FAMOTIDINE 20 MG TABLET PO SCH ×2 (09:48→20:17)
[2020-10-07] MEDS: FUROSEMIDE 40 MG TABLET PO SCH ×2 (09:48→15:47)
[2020-10-07] MEDS: PANTOPRAZOLE 40 MG TABLET PO SCH (09:48)
[2020-10-07] MEDS: ZINC GLUCONATE 50 MG TABLET PO SCH (09:48)
[2020-10-07] MEDS: POTASSIUM CHLORIDE 20 MEQ TABLET PO SCH ×2 (09:48→20:17)
[2020-10-07] MEDS: allopurinoL 100 MG TABLET PO SCH ×2 (09:48→20:18)
[2020-10-07] MEDS: guaiFENesin/CODEINE 5 ML LIQUID PO PRN ×2 (10:12→20:17)
[2020-10-07] MEDS: FLUCONAZOLE 200 MG TABLET PO SCH (14:21)
[2020-10-08] MEDS: MEROPENEM 500 MG in SODIUM CHLORIDE 0.9% 100 ML IV SCH (01:56)
[2020-10-08] MEDS: guaiFENesin/CODEINE 5 ML LIQUID PO PRN (02:56)
[2020-10-08 04:27] LABS: Basophils % 0.1 % (0.0-0.8); Eosinophils # 0.2 10*3/uL (0.0-0.87); Eosinophils % 1.8 % (0.00-10.9); Hematocrit 32.2 VOL% (35.7-47.0); Immature Granulocytes % 0.7 %; Immature Granulocytes Absolute 0.08 #; Lymphocytes % 17.7 % (21.3-54.2); Mean Corpuscular HGB Conc 34.2 GM/DL (32-36); Mean Corpuscular Volume 82.4 FL (87-102); Monocytes % 8.6 % (1.7-12.7); Neutrophils % 71.1 % (38.7-73.9); Platelet Count 307 T/CUMM (130-400); Red Blood Count 3.91 MC/CUMM (3.8-5.5); Red Cell Distribution Width 16.3 % (9.3-17.3); White Blood Count 11.2 T/CUMM (4-12)
[2020-10-08 04:57] LABS: Calcium 8.6 MG/DL (8.5-10.1); Ferritin 625.5 ng/ml (8-252); Potassium 4.4 MMOL/L (3.5-5.1)
[2020-10-08] MEDS: INSULIN REGULAR 100 UNIT/ML SUBCUT SCH ×2 (08:33→11:39)
[2020-10-08] MEDS: ASCORBIC ACID 500 MG TABLET PO SCH ×2 (08:49→21:23)
[2020-10-08] MEDS: DOXAZOSIN 1 MG TABLET PO SCH ×2 (08:50→21:22)
[2020-10-08] MEDS: CETIRIZINE 10 MG TABLET PO SCH (08:50)
[2020-10-08] MEDS: PANTOPRAZOLE 40 MG TABLET PO SCH (08:50)
[2020-10-08] MEDS: FAMOTIDINE 20 MG TABLET PO SCH ×2 (08:50→21:22)
[2020-10-08] MEDS: CHOLECALCIFEROL 1,000 UNIT TABLET PO SCH (08:50)
[2020-10-08] MEDS: FUROSEMIDE 40 MG TABLET PO SCH ×2 (08:50→15:46)
[2020-10-08] MEDS: busPIRone 5 MG TABLET PO SCH ×2 (08:50→21:22)
[2020-10-08] MEDS: allopurinoL 100 MG TABLET PO SCH ×2 (08:50→21:22)
[2020-10-08] MEDS: ATORVASTATIN 20 MG TABLET PO SCH (08:50)
[2020-10-08] MEDS: FLUCONAZOLE 200 MG TABLET PO SCH (08:51)
[2020-10-08] MEDS: ZINC GLUCONATE 50 MG TABLET PO SCH (08:51)
[2020-10-08] MEDS: POTASSIUM CHLORIDE 20 MEQ TABLET PO SCH ×2 (08:51→21:22)
[2020-10-08] MEDS: BENZONATATE 100 MG CAPSULE PO PRN ×2 (11:26→21:22)
[2020-10-08] MEDS: guaiFENesin 200 MG/10 ML UDCUP PO PRN ×2 (11:26→21:23)
[2020-10-09] MEDS: guaiFENesin 200 MG/10 ML UDCUP PO PRN ×2 (02:51→21:20)
[2020-10-09 07:08] LABS: Basophils % 0.2 % (0.0-0.8); Eosinophils # 0.3 10*3/uL (0.0-0.87); Eosinophils % 3.3 % (0.00-10.9); Hematocrit 32.2 VOL% (35.7-47.0); Hemoglobin 10.9 GM/DL (12.0-16.0); Immature Granulocytes % 0.3 %; Immature Granulocytes Absolute 0.03 #; Lymphocytes % 21.1 % (21.3-54.2); Mean Corpuscular HGB Conc 33.9 GM/DL (32-36); Mean Corpuscular Volume 82.1 FL (87-102); Monocytes % 12.5 % (1.7-12.7); Neutrophils % 62.6 % (38.7-73.9); Platelet Count 292 T/CUMM (130-400); Red Blood Count 3.92 MC/CUMM (3.8-5.5); Red Cell Distribution Width 15.9 % (9.3-17.3); White Blood Count 9.7 T/CUMM (4-12)
[2020-10-09 07:46] LABS: Calcium 8.7 MG/DL (8.5-10.1); Osmolality,Calculated 268.1 MOS/KG (273-304); Potassium 4.1 MMOL/L (3.5-5.1)
[2020-10-09] MEDS: FAMOTIDINE 20 MG TABLET PO SCH ×2 (09:23→21:11)
[2020-10-09] MEDS: DOXAZOSIN 1 MG TABLET PO SCH ×2 (09:23→21:10)
[2020-10-09] MEDS: CHOLECALCIFEROL 1,000 UNIT TABLET PO SCH (09:23)
[2020-10-09] MEDS: ZINC GLUCONATE 50 MG TABLET PO SCH (09:23)
[2020-10-09] MEDS: CETIRIZINE 10 MG TABLET PO SCH (09:24)
[2020-10-09] MEDS: POTASSIUM CHLORIDE 20 MEQ TABLET PO SCH ×2 (09:24→21:11)
[2020-10-09] MEDS: allopurinoL 100 MG TABLET PO SCH ×2 (09:24→21:11)
[2020-10-09] MEDS: PANTOPRAZOLE 40 MG TABLET PO SCH (09:24)
[2020-10-09] MEDS: FUROSEMIDE 40 MG TABLET PO SCH ×2 (09:25→18:30)
[2020-10-09] MEDS: busPIRone 5 MG TABLET PO SCH ×2 (09:25→21:11)
[2020-10-09] MEDS: FLUCONAZOLE 200 MG TABLET PO SCH (09:25)
[2020-10-09] MEDS: predniSONE 20 MG TABLET PO SCH (09:25)
[2020-10-09] MEDS: ASCORBIC ACID 500 MG TABLET PO SCH ×2 (09:25→21:11)
[2020-10-09] MEDS: ATORVASTATIN 20 MG TABLET PO SCH (09:25)
[2020-10-09] MEDS ORDERED: FUROSEMIDE 40 MG/4 ML VIAL IV ONE (16:43)
[2020-10-09] MEDS: ENOXAPARIN 30 MG/0.3 ML SYRINGE SUBCUT SCH (18:30)
[2020-10-10] MEDS: guaiFENesin 200 MG/10 ML UDCUP PO PRN ×3 (04:27→21:32)
[2020-10-10] MEDS: ENOXAPARIN 30 MG/0.3 ML SYRINGE SUBCUT SCH ×2 (04:42→16:40)
[2020-10-10 05:46] LABS: Basophils % 0.1 % (0.0-0.8); Eosinophils # 0.3 10*3/uL (0.0-0.87); Eosinophils % 3.4 % (0.00-10.9); Hematocrit 35.9 VOL% (35.7-47.0); Hemoglobin 11.7 GM/DL (12.0-16.0); Immature Granulocytes % 0.3 %; Immature Granulocytes Absolute 0.03 #; Lymphocytes # 2.1 10*3/uL (1.4-4.0); Lymphocytes % 21.9 % (21.3-54.2); Mean Corpuscular HGB Conc 32.6 GM/DL (32-36); Mean Corpuscular Volume 84.1 FL (87-102); Mean Platelet Volume 9.7 FL (9.6-12.0); Monocytes % 9.4 % (1.7-12.7); Neutrophils % 64.9 % (38.7-73.9); Platelet Count 232 T/CUMM (130-400); Red Blood Count 4.27 MC/CUMM (3.8-5.5); Red Cell Distribution Width 16.3 % (9.3-17.3); White Blood Count 9.5 T/CUMM (4-12)
[2020-10-10 06:13] LABS: Albumin 1.9 G/DL (3.4-5.0); Bilirubin,Total 1.1 MG/DL (0.20-1.00); Calcium 8.7 MG/DL (8.5-10.1); Osmolality,Calculated 274.7 MOS/KG (273-304); Potassium 4.1 MMOL/L (3.5-5.1); Total Protein 7.3 G/DL (6.4-8.2)
[2020-10-10] MEDS: ACETAMINOPHEN 325 MG TABLET PO PRN ×2 (06:37→13:59)
[2020-10-10] MEDS: ATORVASTATIN 20 MG TABLET PO SCH (10:44)
[2020-10-10] MEDS: predniSONE 20 MG TABLET PO SCH (10:45)
[2020-10-10] MEDS: POTASSIUM CHLORIDE 20 MEQ TABLET PO SCH ×2 (10:45→21:34)
[2020-10-10] MEDS: allopurinoL 100 MG TABLET PO SCH ×2 (10:45→21:34)
[2020-10-10] MEDS: CHOLECALCIFEROL 1,000 UNIT TABLET PO SCH (10:45)
[2020-10-10] MEDS: DOXAZOSIN 1 MG TABLET PO SCH ×2 (10:45→21:33)
[2020-10-10] MEDS: FLUCONAZOLE 200 MG TABLET PO SCH (10:46)
[2020-10-10] MEDS: CETIRIZINE 10 MG TABLET PO SCH (10:46)
[2020-10-10] MEDS: PANTOPRAZOLE 40 MG TABLET PO SCH (10:46)
[2020-10-10] MEDS: FAMOTIDINE 20 MG TABLET PO SCH ×2 (10:46→21:32)
[2020-10-10] MEDS: BENZONATATE 100 MG CAPSULE PO PRN ×2 (10:46→16:40)
[2020-10-10] MEDS: ZINC GLUCONATE 50 MG TABLET PO SCH (10:46)
[2020-10-10] MEDS: ASCORBIC ACID 500 MG TABLET PO SCH ×2 (10:46→21:33)
[2020-10-10] MEDS: FUROSEMIDE 40 MG TABLET PO SCH ×2 (10:47→16:39)
[2020-10-10] MEDS: busPIRone 5 MG TABLET PO SCH ×2 (10:48→21:34)
[2020-10-11] MEDS: guaiFENesin 200 MG/10 ML UDCUP PO PRN ×4 (04:16→21:07)
[2020-10-11] MEDS: ENOXAPARIN 30 MG/0.3 ML SYRINGE SUBCUT SCH ×2 (04:16→16:08)
[2020-10-11 06:02] LABS: Basophils % 0.2 % (0.0-0.8); Eosinophils # 0.3 10*3/uL (0.0-0.87); Eosinophils % 2.9 % (0.00-10.9); Hematocrit 33.7 VOL% (35.7-47.0); Hemoglobin 11.2 GM/DL (12.0-16.0); Immature Granulocytes % 0.6 %; Immature Granulocytes Absolute 0.06 #; Lymphocytes # 2.5 10*3/uL (1.4-4.0); Lymphocytes % 23.2 % (21.3-54.2); Mean Corpuscular HGB Conc 33.2 GM/DL (32-36); Mean Corpuscular Volume 83.6 FL (87-102); Mean Platelet Volume 10.3 FL (9.6-12.0); Monocytes % 5.3 % (1.7-12.7); Neutrophils % 67.8 % (38.7-73.9); Platelet Count 266 T/CUMM (130-400); Red Blood Count 4.03 MC/CUMM (3.8-5.5); Red Cell Distribution Width 16.2 % (9.3-17.3); White Blood Count 10.8 T/CUMM (4-12)
[2020-10-11 06:17] LABS: Bilirubin,Total 0.4 MG/DL (0.20-1.00); Calcium 8.8 MG/DL (8.5-10.1); Osmolality,Calculated 278.4 MOS/KG (273-304); Potassium 4.1 MMOL/L (3.5-5.1); Total Protein 7.5 G/DL (6.4-8.2)
[2020-10-11] MEDS: FUROSEMIDE 40 MG TABLET PO SCH ×2 (09:43→16:08)
[2020-10-11] MEDS: ATORVASTATIN 20 MG TABLET PO SCH (09:43)
[2020-10-11] MEDS: POTASSIUM CHLORIDE 20 MEQ TABLET PO SCH ×2 (09:43→21:07)
[2020-10-11] MEDS: ASCORBIC ACID 500 MG TABLET PO SCH ×2 (09:43→21:07)
[2020-10-11] MEDS: CHOLECALCIFEROL 1,000 UNIT TABLET PO SCH (09:43)
[2020-10-11] MEDS: CETIRIZINE 10 MG TABLET PO SCH (09:43)
[2020-10-11] MEDS: ZINC GLUCONATE 50 MG TABLET PO SCH (09:44)
[2020-10-11] MEDS: FLUCONAZOLE 200 MG TABLET PO SCH (09:44)
[2020-10-11] MEDS: predniSONE 20 MG TABLET PO SCH (09:44)
[2020-10-11] MEDS: busPIRone 5 MG TABLET PO SCH ×2 (09:44→21:07)
[2020-10-11] MEDS: FAMOTIDINE 20 MG TABLET PO SCH ×2 (09:44→21:08)
[2020-10-11] MEDS: allopurinoL 100 MG TABLET PO SCH ×2 (09:44→21:08)
[2020-10-11] MEDS: DOXAZOSIN 1 MG TABLET PO SCH ×2 (09:44→21:08)
[2020-10-11] MEDS: PANTOPRAZOLE 40 MG TABLET PO SCH (09:44)
[2020-10-11] MEDS: LOPERAMIDE 2 MG CAPSULE PO PRN (11:09)
[2020-10-11] MEDS: BENZONATATE 100 MG CAPSULE PO PRN ×2 (11:09→21:07)
[2020-10-12] MEDS: guaiFENesin 200 MG/10 ML UDCUP PO PRN ×3 (02:20→21:04)
[2020-10-12] MEDS: ENOXAPARIN 30 MG/0.3 ML SYRINGE SUBCUT SCH ×2 (05:36→16:19)
[2020-10-12] MEDS: BENZONATATE 100 MG CAPSULE PO PRN ×2 (05:36→21:04)
[2020-10-12] MEDS: LOPERAMIDE 2 MG CAPSULE PO PRN (05:36)
[2020-10-12 06:01] LABS: Basophils % 0.2 % (0.0-0.8); Eosinophils # 0.3 10*3/uL (0.0-0.87); Eosinophils % 2.7 % (0.00-10.9); Hematocrit 32.3 VOL% (35.7-47.0); Hemoglobin 10.6 GM/DL (12.0-16.0); Immature Granulocytes % 0.6 %; Immature Granulocytes Absolute 0.08 #; Lymphocytes # 2.9 10*3/uL (1.4-4.0); Lymphocytes % 23.2 % (21.3-54.2); Mean Corpuscular HGB Conc 32.8 GM/DL (32-36); Mean Corpuscular Volume 83.7 FL (87-102); Mean Platelet Volume 10.7 FL (9.6-12.0); Monocytes % 9.7 % (1.7-12.7); Neutrophils % 63.6 % (38.7-73.9); Platelet Count 274 T/CUMM (130-400); Red Blood Count 3.86 MC/CUMM (3.8-5.5); Red Cell Distribution Width 16.6 % (9.3-17.3); White Blood Count 12.6 T/CUMM (4-12)
[2020-10-12 06:26] LABS: Calcium 8.9 MG/DL (8.5-10.1); Osmolality,Calculated 277.4 MOS/KG (273-304); Potassium 4.3 MMOL/L (3.5-5.1)
[2020-10-12] MEDS: FAMOTIDINE 20 MG TABLET PO SCH ×2 (09:35→21:04)
[2020-10-12] MEDS: ZINC GLUCONATE 50 MG TABLET PO SCH (09:35)
[2020-10-12] MEDS: POTASSIUM CHLORIDE 20 MEQ TABLET PO SCH ×2 (09:35→21:04)
[2020-10-12] MEDS: PANTOPRAZOLE 40 MG TABLET PO SCH (09:35)
[2020-10-12] MEDS: ASCORBIC ACID 500 MG TABLET PO SCH ×2 (09:35→21:04)
[2020-10-12] MEDS: FUROSEMIDE 40 MG TABLET PO SCH ×2 (09:35→16:19)
[2020-10-12] MEDS: DOXAZOSIN 1 MG TABLET PO SCH ×2 (09:35→21:03)
[2020-10-12] MEDS: CHOLECALCIFEROL 1,000 UNIT TABLET PO SCH (09:35)
[2020-10-12] MEDS: allopurinoL 100 MG TABLET PO SCH ×2 (09:36→21:04)
[2020-10-12] MEDS: FLUCONAZOLE 200 MG TABLET PO SCH (09:36)
[2020-10-12] MEDS: predniSONE 20 MG TABLET PO SCH (09:36)
[2020-10-12] MEDS: ATORVASTATIN 20 MG TABLET PO SCH (09:36)
[2020-10-12] MEDS: CETIRIZINE 10 MG TABLET PO SCH (09:36)
[2020-10-12] MEDS: busPIRone 5 MG TABLET PO SCH ×2 (09:43→21:04)
[2020-10-13] MEDS: guaiFENesin 200 MG/10 ML UDCUP PO PRN ×4 (01:16→20:35)
[2020-10-13] MEDS: ENOXAPARIN 30 MG/0.3 ML SYRINGE SUBCUT SCH ×2 (04:56→16:02)
[2020-10-13] MEDS: BENZONATATE 100 MG CAPSULE PO PRN ×3 (04:56→20:35)
[2020-10-13 06:50] LABS: Basophils % 0.2 % (0.0-0.8); Eosinophils # 0.5 10*3/uL (0.0-0.87); Eosinophils % 3.7 % (0.00-10.9); Hematocrit 33.9 VOL% (35.7-47.0); Hemoglobin 10.8 GM/DL (12.0-16.0); Immature Granulocytes % 0.7 %; Immature Granulocytes Absolute 0.09 #; Lymphocytes # 3.2 10*3/uL (1.4-4.0); Lymphocytes % 26.1 % (21.3-54.2); Mean Corpuscular HGB Conc 31.9 GM/DL (32-36); Mean Corpuscular Volume 85.6 FL (87-102); Mean Platelet Volume 10.8 FL (9.6-12.0); Neutrophils % 61.3 % (38.7-73.9); Platelet Count 293 T/CUMM (130-400); Red Blood Count 3.96 MC/CUMM (3.8-5.5); Red Cell Distribution Width 16.4 % (9.3-17.3); White Blood Count 12.3 T/CUMM (4-12)
[2020-10-13 06:58] LABS: Calcium 9.1 MG/DL (8.5-10.1); Osmolality,Calculated 272.8 MOS/KG (273-304); Potassium 4.1 MMOL/L (3.5-5.1)
[2020-10-13] MEDS: ZINC GLUCONATE 50 MG TABLET PO SCH (09:39)
[2020-10-13] MEDS: DOXAZOSIN 1 MG TABLET PO SCH ×2 (09:39→20:35)
[2020-10-13] MEDS: ASCORBIC ACID 500 MG TABLET PO SCH ×2 (09:40→20:36)
[2020-10-13] MEDS: PANTOPRAZOLE 40 MG TABLET PO SCH (09:40)
[2020-10-13] MEDS: predniSONE 20 MG TABLET PO SCH (09:40)
[2020-10-13] MEDS: FAMOTIDINE 20 MG TABLET PO SCH ×2 (09:40→20:35)
[2020-10-13] MEDS: CHOLECALCIFEROL 1,000 UNIT TABLET PO SCH (09:40)
[2020-10-13] MEDS: allopurinoL 100 MG TABLET PO SCH ×2 (09:40→20:35)
[2020-10-13] MEDS: FUROSEMIDE 40 MG TABLET PO SCH ×2 (09:40→16:02)
[2020-10-13] MEDS: FLUCONAZOLE 200 MG TABLET PO SCH (09:40)
[2020-10-13] MEDS: CETIRIZINE 10 MG TABLET PO SCH (09:41)
[2020-10-13] MEDS: POTASSIUM CHLORIDE 20 MEQ TABLET PO SCH ×2 (09:41→20:35)
[2020-10-13] MEDS: ATORVASTATIN 20 MG TABLET PO SCH (09:41)
[2020-10-13] MEDS: busPIRone 5 MG TABLET PO SCH ×2 (09:43→20:36)
[2020-10-13 12:04] LABS: Hypochromasia 2+; Platelet Estimate Normal
[2020-10-14] MEDS: guaiFENesin 200 MG/10 ML UDCUP PO PRN ×3 (00:35→09:50)
[2020-10-14] MEDS: BENZONATATE 100 MG CAPSULE PO PRN ×2 (04:39→12:10)
[2020-10-14] MEDS: ENOXAPARIN 30 MG/0.3 ML SYRINGE SUBCUT SCH (04:39)
[2020-10-14 06:06] LABS: Basophils % 0.3 % (0.0-0.8); Eosinophils # 0.5 10*3/uL (0.0-0.87); Eosinophils % 4.2 % (0.00-10.9); Hematocrit 33.6 VOL% (35.7-47.0); Hemoglobin 10.9 GM/DL (12.0-16.0); Immature Granulocytes % 0.8 %; Immature Granulocytes Absolute 0.09 #; Lymphocytes # 3.4 10*3/uL (1.4-4.0); Lymphocytes % 29.5 % (21.3-54.2); Mean Corpuscular HGB Conc 32.4 GM/DL (32-36); Mean Corpuscular Volume 83.6 FL (87-102); Mean Platelet Volume 10.1 FL (9.6-12.0); Neutrophils % 57.2 % (38.7-73.9); Platelet Count 295 T/CUMM (130-400); Red Blood Count 4.02 MC/CUMM (3.8-5.5); Red Cell Distribution Width 16.4 % (9.3-17.3); White Blood Count 11.6 T/CUMM (4-12)
[2020-10-14 06:21] LABS: Osmolality,Calculated 274.7 MOS/KG (273-304); Potassium 4.3 MMOL/L (3.5-5.1)
[2020-10-14 06:34] LABS: Eosinophils 6 % (0-10); Hypochromasia 1+; Lymphocytes 30 % (20-55); Microcytosis 1+; Platelet Estimate Adequate; Segmented Neutrophils 56 % (50-85); Total Cells Counted 100
[2020-10-14] MEDS: LOPERAMIDE 2 MG CAPSULE PO PRN (09:44)
[2020-10-14] MEDS: busPIRone 5 MG TABLET PO SCH (09:44)
[2020-10-14] MEDS: CETIRIZINE 10 MG TABLET PO SCH (09:45)
[2020-10-14] MEDS: ASCORBIC ACID 500 MG TABLET PO SCH (09:45)
[2020-10-14] MEDS: CHOLECALCIFEROL 1,000 UNIT TABLET PO SCH (09:46)
[2020-10-14] MEDS: ZINC GLUCONATE 50 MG TABLET PO SCH (09:46)
[2020-10-14] MEDS: FAMOTIDINE 20 MG TABLET PO SCH (09:46)
[2020-10-14] MEDS: DOXAZOSIN 1 MG TABLET PO SCH (09:46)
[2020-10-14] MEDS: FLUCONAZOLE 200 MG TABLET PO SCH (09:47)
[2020-10-14] MEDS: FUROSEMIDE 40 MG TABLET PO SCH (09:47)
[2020-10-14] MEDS: PANTOPRAZOLE 40 MG TABLET PO SCH (09:48)
[2020-10-14] MEDS: allopurinoL 100 MG TABLET PO SCH (09:48)
[2020-10-14] MEDS: ATORVASTATIN 20 MG TABLET PO SCH (09:48)
[2020-10-14] MEDS: predniSONE 20 MG TABLET PO SCH (09:48)
[2020-10-14] MEDS: POTASSIUM CHLORIDE 20 MEQ TABLET PO SCH (09:49)
[2020-10-14 11:48] VITALS: BP 119/67
== END 2020-10-14 12:22 | DRG 177 ==
LOC: N.ED 18:42 → SUATTDRO 22:02 → N.EDINP 22:02 → N.2E 09-24 15:44 → N.TELES 10-04 12:29
PROVIDERS: ADMIT Internal Medicine; ATTEND Internal Medicine